=== PATIENT | female | born 1985 ===

== ENCOUNTER 2016-10-25 15:10 | Emergency (ER) | payer BC ==
[~2016-10-25] VITALS: Ht 162.6 cm; Wt 49.5 kg
[2016-10-25 15:17] VITALS: Ht 162.6 cm; Wt 49.5 kg
[2016-10-25] MEDS ORDERED: GI COCKTAIL PO STA (16:27)
[2016-10-25] MEDS ORDERED: ONDANSETRON INJ 2 MG/ML 2 ML VIAL IV STA (16:27)
[2016-10-25] MEDS ORDERED: SODIUM CHLORIDE 0.9% 1000ML 1,000 ML IV STA ×2 (16:27→19:20)
[2016-10-25] MEDS ORDERED: BIOTCAP2 PO (16:42)
[2016-10-25] MEDS ORDERED: MULT-513 PO (16:42)
[2016-10-25] MEDS ORDERED: PPTBS PO (16:42)
[2016-10-25 17:00] LABS: BASO % 1.7 %; BASO ABS # 0.09 K/uL (0-0.2); COMPLETE YES; EOS % 2.4 %; HEMATOCRIT 39.5 % (37-47); IG% 0.2 %; LYMPH % 24.3 %; LYMPH ABS # 1.31 K/uL (1.2-3.4); MEAN CELL VOLUME 89.8 fL (80-100); MEAN CORPUSCULAR HGB CONC 33.4 g/dl (32-36); MEAN PLATELET VOLUME 9.8 fL (7.4-10.4); MONO % 8.5 %; NEUT % 62.9 %; PLATELET COUNT 300 K/uL (130-400); WHITE BLOOD COUNT 5.39 K/uL (4.8-10.8)
[2016-10-25] MEDS ORDERED: LIDOCAINE HCL 2% VISC SOLN 20 ML UDC ONE (17:05)
[2016-10-25] MEDS ORDERED: ALUMINUM/MAGNESIUM SUSP 30 ML UDC ONE (17:05)
[2016-10-25 17:18] LABS: BUN/CREATININE RATIO 15.4 (10-20); CALCIUM 9.3 mg/dl (8.5-10.1); CREATININE 0.57 mg/dl (0.60-1.20); POTASSIUM 3.6 mmol/L (3.5-5.1)
--- NOTE | 2016-10-25 17:29 | EMERGENCY ROOM VISIT NOTE ---
History Report prepared by Azra: Myles Fletcher Under the Supervision of: Dr. Carlin Steiner M.D. First contact with patient: 16:22 Chief Complaint: ABDOMINAL PAIN Stated Complaint: STOMACH ACHE,BLOATING,PAIN Nursing Triage Summary: Pt c/o "stomach ache" since Monday. Denies N/V/D Pt c/o pain and bloating. Denies urinary symptoms. History of Present Illness The patient is a 31 year old female with no known past medical history who presents to the ED with a cc of constant, achy abdominal pain beginning two days ago. The patient describes her pain as bloating, but she does not have gas. She reports that her pain does not vary in severity. The patient notes that she is currently on her menstrual period and gets pain with it. She states that this pain is not like the pain she typically experiences with her menstrual period. The patient reports that she does have a headache, but thinks it is because she has not had coffee today. She notes that her discomfort started after eating pizza. The patient states that she stopped eating foods that she thought would trigger it. She reports that eating does worsen her pain, but she thought it was because of the pressure it creates. The patient notes that she has been moving and lifting heavy objects. She states that her last normal bowel movement was this morning. The patient reports that she was taking ibuprofen and acetaminophen, and she believes that it is helping. She denies recent trauma, history of abdominal surgeries, alcohol use, tobacco use, nausea, vomiting, being exposed to other sick people, recent antibiotic use, and recent travel. Source of History: patient Onset: two days ago Position: abdomen Quality: ache Timing: constant Modifying Factors (Worsening): eating Modifying Factors (Relieving): tylenol, ibuprofen Associated Symptoms: + headache, No nausea, No vomiting Note: Associated symptoms: bloating Denies recent trauma, history of abdominal surgeries, alcohol use, tobacco use, being exposed to other sick people, recent antibiotic use, and recent travel. Review of Systems See HPI for pertinent positives and negatives. A total of ten systems were reviewed and were otherwise negative. Past Medical & Surgical Medical Problems: (1) No Known Active Medical Problems Family History Hypertension Social History Smoking Status: Never Smoker Smokeless Tobacco Use: No Alcohol Use: none Marital Status: single Housing Status: lives alone Occupation Status: employed Current/Historical Medications Scheduled Biotin (Biotin 5000), 1 CAP PO DAILY Bismuth Subsalicylate (Pepto-Bismol Susp), 30 ML PO PRN UD Famotidine (Pepcid), 1 TAB PO BID Multivitamins/Minerals (Mvi With Minerals), 1 TAB PO DAILY Allergies Coded Allergies: No Known Allergies (Unverified , 10/25/16) Physical Exam Vital Signs Date Time Temp Pulse Resp B/P (MAP) Pulse Ox O2 Delivery O2 Flow Rate FiO2 10/25/16 20:50 36.7 75 20 101/55 100 10/25/16 20:38 75 20 101/55 100 Room Air 10/25/16 18:24 79 20 90/56 100 Room Air 10/25/16 16:51 85 20 102/60 100 Room Air 10/25/16 15:17 36.7 86 15 111/74 98 Room Air Physical Exam GENERAL: Awake, alert, well-appearing, NAD HENT: Normocephalic, atraumatic. EYES: Normal conjunctiva. Sclera non-icteric. NECK: Supple. No nuchal rigidity. FROM. RESPIRATORY: CTAB, no rhonchi, wheezing, crackles CARDIAC: RRR, no MRG ABDOMEN: Soft, ND, BS+. Mild umbilical tenderness, negative obturator, negative psoas, negative Conn's sign, negative tenderness to the remaining abdomen. MSK: No chest wall TTP, no LE edema NEURO: GCS 15, CN 2-12 intact, moves all 4s on command SKIN: No rash or jaundice noted. Medical Decision & Procedures ER Provider Diagnostic Interpretation: Radiology results as stated below per my review and radiologist interpretation: ABDOMINAL ULTRASOUND, RIGHT UPPER QUADRANT HISTORY: Mildly elevated bilirubin. COMPARISON: None. FINDINGS: Liver is sonographically normal. There is no biliary ductal dilatation. The common bile duct measures 4 mm in caliber. The pancreatic body is normal. The head and tail are partially obscured by bowel gas. The gallbladder is normal. There are no gallstones. There is no right hydronephrosis. IMPRESSION: No significant abnormality identified within the right upper quadrant. Electronically signed by: Barry Falk M.D. 10/25/2016 7:07 PM Dictated Date/Time: 10/25/2016 7:06 PM APPENDIX ULTRASOUND HISTORY: Umbilical pain. COMPARISON: None. FINDINGS: Transabdominal scanning of the right lower quadrant was performed. The appendix was not identified. There are no fluid collections or masses within the right lower quadrant. IMPRESSION: Nonvisualization of the appendix. This study is nondiagnostic in regards to evaluation for acute appendicitis. Electronically signed by: Barry Falk M.D. 10/25/2016 7:06 PM Dictated Date/Time: 10/25/2016 7:05 PM Laboratory Results 10/25/16 16:45 Red Blood Count 4.40, Mean Corpuscular Volume 89.8, Mean Corpuscular Hemoglobin 30.0, Mean Corpuscular Hemoglobin Concent 33.4, Mean Platelet Volume 9.8, Neutrophils (%) (Auto) 62.9, Lymphocytes (%) (Auto) 24.3, Monocytes (%) (Auto) 8.5, Eosinophils (%) (Auto) 2.4, Basophils (%) (Auto) 1.7, Neutrophils # (Auto) 3.39, Lymphocytes # (Auto) 1.31, Monocytes # (Auto) 0.46, Eosinophils # (Auto) 0.13, Basophils # (Auto) 0.09 10/25/16 16:45 Test 10/25/16 16:30 10/25/16 16:45 Urine Color YELLOW Urine Appearance CLEAR (CLEAR) Urine pH 5.0 (4.5-7.5) Urine Specific [place] 1.015 (1.000-1.030) Urine Protein NEG (NEG) Urine Glucose (UA) NEG (NEG) Urine Ketones 2+ (NEG) Urine Occult Blood 2+ (NEG) Urine Nitrite NEG (NEG) Urine Bilirubin NEG (NEG) Urine Urobilinogen NEG (NEG) Urine Leukocyte Esterase NEG (NEG) Urine WBC (Auto) 0 /hpf (0-5) Urine RBC (Auto) 0-4 /hpf (0-4) Urine Hyaline Casts (Auto) 1-5 /lpf (0-5) Urine Epithelial Cells (Auto) 5-10 /lpf (0-5) Urine Bacteria (Auto) NEG (NEG) Urine Test NEG (NEG) White Blood Count 5.39 K/uL (4.8-10.8) Red Blood Count 4.40 M/uL (4.2-5.4) Hemoglobin 13.2 g/dL (12.0-16.0) Hematocrit 39.5 % (37-47) Mean Corpuscular Volume 89.8 fL (80-100) Mean Corpuscular Hemoglobin 30.0 pg (25-34) Mean Corpuscular Hemoglobin Concent 33.4 g/dl (32-36) Platelet Count 300 K/uL (130-400) Mean Platelet Volume 9.8 fL (7.4-10.4) Neutrophils (%) (Auto) 62.9 % Lymphocytes (%) (Auto) 24.3 % Monocytes (%) (Auto) 8.5 % Eosinophils (%) (Auto) 2.4 % Basophils (%) (Auto) 1.7 % Neutrophils # (Auto) 3.39 K/uL (1.4-6.5) Lymphocytes # (Auto) 1.31 K/uL (1.2-3.4) Monocytes # (Auto) 0.46 K/uL (0.11-0.59) Eosinophils # (Auto) 0.13 K/uL (0-0.5) Basophils # (Auto) 0.09 K/uL (0-0.2) RDW Standard Deviation 40.0 fL (36.4-46.3) RDW Coefficient of Variation 12.2 % (11.5-14.5) Immature Granulocyte % (Auto) 0.2 % Immature Granulocyte # (Auto) 0.01 K/uL (0.00-0.02) Anion Gap 7.0 mmol/L (3-11) Est Creatinine Clear Calc Drug Dose 110.7 ml/min Estimated GFR () 142.2 Estimated GFR (Non- 122.7 BUN/Creatinine Ratio 15.4 (10-20) Calcium Level 9.3 mg/dl (8.5-10.1) Total Bilirubin 1.3 mg/dl (0.2-1) Direct Bilirubin 0.3 mg/dl (0-0.2) Aspartate Amino Transf (AST/SGOT) 15 U/L (15-37) Alanine Aminotransferase (ALT/SGPT) 15 U/L (12-78) Alkaline Phosphatase 71 U/L (45-117) Total Protein 8.3 gm/dl (6.4-8.2) Albumin 4.1 gm/dl (3.4-5.0) Lipase 142 U/L (73-393) Laboratory results reviewed by me Medications Administered Medications (Trade) Dose Ordered Sig/Jazmin Route Start Time Stop Time Status Last Admin Dose Admin Sodium Chloride 1,000 ml @ 999 mls/hr Q1H1M STAT IV 10/25/16 16:27 10/25/16 17:27 DC 10/25/16 16:54 999 MLS/HR Miscellaneous Medication (Gi Cocktail) 24 ml ONE STAT PO 10/25/16 16:27 10/25/16 16:29 DC 10/25/16 17:09 24 ML Acetaminophen (Tylenol Tab) 1,000 mg NOW STAT PO 10/25/16 19:20 10/25/16 19:23 DC 10/25/16 19:41 1,000 MG Metoclopramide HCl (Reglan Inj) 10 mg NOW STAT IV 10/25/16 19:20 10/25/16 19:23 DC 10/25/16 19:41 10 MG ED Course 1638: The patient was evaluated in room A08. A complete history and physical exam was performed. 1829: I reevaluated the patient, and she is feeling better. I discussed her lab results with her. She is getting her US now. 1915: I reevaluated the patient, and she is still in mild pain. I updated her of her current, new results. 2027: I reevaluated the patient. Discussed results and discharge instructions: she verbalized understanding and agreement. The patient is ready for discharge. Medical Decision The patient is a 31 year old female with no known past medical history who presents to the ED with a cc of constant, achy abdominal pain beginning two days ago. Differential diagnosis includes: etiologies such as appendicitis, diverticulitis, PUD, biliary pathology, UTI, pancreatitis, obstruction, mesenteric ischemia, aortic pathology, infections, inflammatory bowel disease, renal colic, as well as others were entertained. Patient's lab work UA and UPT were completed. Patient is noted to have very trace elevations in her bilirubin but without her LFTs are alkaline phosphatase. Given this patient had a right upper quadrant ultrasound as well as a right lower quadrant ultrasound obtained. Patient is right upper quadrant ultrasound was negative acute. Patient's right lower quadrant ultrasound was nondiagnostic for appendicitis. Results the patient said that we cannot fully rule out an appendicitis given the nondiagnostic ultrasound. Patient however is able tolerate by mouth without any nausea vomiting is able to abmulate without difficulties had no fevers and doesn't have any right lower quadrant tenderness to palpation. Patient still did have some mild discomfort was given additional medications. Of note she had recently completed a move which may be related to some MSK related pain. Patient felt mildly improved. Patient's UA did have some blood she was having her menstrual period. Patient UPT was negative. Patient was told and given counseled about what foods to avoid. Patient was told this could 've been similar to some biliary colic however her ultrasound was negative. Patient was given some recommendations for foods to avoid as well as medications to take for possible gastritis. Patient was told to return if she had worsening symptoms which include fever vomiting or intense right lower quadrant pain. Patient agreed with the plan of care was given strict follow-up for discharge, and return precautions. Patient was safely discharged home Impression Primary Impression: Abdominal pain Additional Impression: Gastritis Scribe Attestation The scribe's documentation has been prepared under my direction and personally reviewed by me in its entirety. I confirm that the note above accurately reflects all work, treatment, procedures, and medical decision making performed by me. Departure Information Dispostion Home / Self-Care Prescriptions Famotidine (PEPCID) 20 Mg Tab 1 TAB PO BID for 30 Days, #60 TAB 3 Refills Prov: Carlin Steiner M.D. 10/25/16 Referrals No Doctor, Assigned (PCP) Forms Call Back Authorization, HOME CARE DOCUMENTATION FORM, IMPORTANT VISIT INFORMATION Patient Instructions ED Gastritis, [facility] Additional Instructions Please return to the emergency department if you have worsening or recurrent symptoms not amenable to at-home treatment. Please call for a follow-up appointment with her primary care physician. Please take your medications as prescribed. If you have other concerns and/or complaints please feel free to also call your primary care physician's office or return the ED for further evaluation, management, and treatment. Take 1000 mg Tylenol every 6 hours for a maximum of 4000 mg per day. Please take your medications as prescribed. Please return to the emergency department if you have nausea or vomiting severe right lower quadrant pain and/or fever. Please follow-up with a primary care physician. Work Instructions Return To Work: 1 day Problem Qualifiers Primary Impression: Abdominal pain Abdominal location: periumbilical Qualified Codes: R10.33 - Periumbilical pain Additional Impression: Gastritis Gastritis type: unspecified gastritis Chronicity: acute Gastritis bleeding : presence of bleeding unspecified Qualified Codes: K29.00 - Acute gastritis without bleeding
[2016-10-25 17:43] LABS: URINE APPEARANCE CLEAR (CLEAR); URINE BILIRUBIN NEG (NEG); URINE COLOR YELLOW; URINE NITRITE NEG (NEG); URINE SPECIFIC GRAVITY 1.015 (1.000-1.030); UROBILINOGEN NEG (NEG); ZZUR CULT IF INDIC CLEAN CATCH NO
[2016-10-25 18:16] LABS: MANUAL MICROSCOPIC REQUIRED? NO; REVIEW REQ? NO
--- NOTE | 2016-10-25 19:07 | DIAGNOSTIC IMAGING REPORT ---
APPENDIX ULTRASOUND HISTORY: Umbilical pain. COMPARISON: None. FINDINGS: Transabdominal scanning of the right lower quadrant was performed. The appendix was not identified. There are no fluid collections or masses within the right lower quadrant. IMPRESSION: Nonvisualization of the appendix. This study is nondiagnostic in regards to evaluation for acute appendicitis. Electronically signed by: Barry Falk M.D. 10/25/2016 7:06 PM Dictated Date/Time: 10/25/2016 7:05 PM
--- NOTE | 2016-10-25 19:08 | DIAGNOSTIC IMAGING REPORT ---
ABDOMINAL ULTRASOUND, RIGHT UPPER QUADRANT HISTORY: Mildly elevated bilirubin. COMPARISON: None. FINDINGS: Liver is sonographically normal. There is no biliary ductal dilatation. The common bile duct measures 4 mm in caliber. The pancreatic body is normal. The head and tail are partially obscured by bowel gas. The gallbladder is normal. There are no gallstones. There is no right hydronephrosis. IMPRESSION: No significant abnormality identified within the right upper quadrant. Electronically signed by: Barry Falk M.D. 10/25/2016 7:07 PM Dictated Date/Time: 10/25/2016 7:06 PM
[2016-10-25] MEDS ORDERED: ACETAMINOPHEN 500 MG TAB PO STA (19:20)
[2016-10-25] MEDS ORDERED: IBUPROFEN 600 MG TAB PO STA (19:20)
[2016-10-25] MEDS ORDERED: TRAMADOL HCL 50 MG TAB PO STA (19:20)
[2016-10-25] MEDS ORDERED: METOCLOPRAMIDE HCL INJ 5 MG/ML 2 ML VIAL IV STA (19:20)
[2016-10-25] MEDS ORDERED: METOCLOPRAMIDE HCL INJ 5 MG/ML 2 ML VIAL ONE (19:35)
[2016-10-25] MEDS ORDERED: TRAMADOL HCL 50 MG TAB ONE (19:36)
[2016-10-25] MEDS ORDERED: IBUPROFEN 600 MG TAB ONE (19:36)
[2016-10-25] MEDS ORDERED: ACETAMINOPHEN 500 MG TAB PO ONE (19:36)
[2016-10-25] MEDS ORDERED: FAMO20TA9 PO (20:35)
[2016-10-25 20:50] VITALS: BP 101/55; PULSE 75; TEMP 36.7; O2SAT 100
== END 2016-10-25 20:50 | disposition home or self-care (01) ==
LOC: C.EDB 15:13 → C.EDA 20:50
DX: K29.00 Acute gastritis without bleeding (principal); Z82.49 Family history of ischemic heart disease and other diseases of the circulatory system; Z79.899 Other long term (current) drug therapy